=== PATIENT | male | born 1995 | race Caucasian/White ===

== ENCOUNTER 2022-06-14 21:00 | Emergency (ER) | payer MEDICAID, SELFPAY ==
[2022-06-14 21:02] VITALS: BP 132/84; PULSE 80; RESP 20; TEMP 37; O2SAT 99; BMI 26.6
--- NOTE | 2022-06-14 21:07 | ECG_ITS ---
Test Reason : chest pain Blood Pressure : / mmHG Vent. Rate : 072 BPM Atrial Rate : 072 BPM P-R Int : 142 ms QRS Dur : 102 ms QT Int : 374 ms P-R-T Axes : 056 061 043 degrees QTc Int : 409 ms Normal sinus rhythm Normal ECG No previous ECGs available Referred By: Generic ED Physician Electronically Signed By:LAURY BUENO
[2022-06-14 21:32] VITALS: BP 128/86; PULSE 79; RESP 16; TEMP 36.4; O2SAT 100
[2022-06-14 21:36] LABS: MANUAL DIFF FLAG NO
[2022-06-14 21:37] LABS: Basophils Absolute Auto 0.1 X10*3/uL (0.0-0.2); Basophils Percent Auto 0.9 % (0-2); Eosinophils Absolute Auto 0.2 X10*3/uL (0.0-0.4); Eosinophils Percent Auto 3.1 % (0-4); Hematocrit 42.9 % (42.0-52.0); Imm Gran Abs Auto 0.01 X10*3/uL (0.00-0.03); Imm Gran Pct Auto 0.1 % (0.0-0.4); Lymphocytes Absolute Auto 2.4 X10*3/uL (1.2-4.9); Lymphocytes Percent Auto 34.8 % (20-40); Mean Corpuscular Hemoglobin 30.6 pg (27.0-33.0); Mean Corpuscular Volume 87.6 fL (80.0-98.0); Monocytes Absolute Auto 0.5 X10*3/uL (0.1-1.2); Monocytes Percent Auto 7.3 % (2-11); Neutrophils Absolute Auto 3.8 x10*3/uL (2.0-8.3); Neutrophils Percent Auto 53.8 % (45-73); Platelet Count 258 X10*3/uL (160-400); Red Cell Distribution Width 11.6 % (11.0-16.0)
--- NOTE | 2022-06-14 21:46 | PC.NURSE ---
Nursing Assessment: Pt's V/S are stable, Pt 's spouse is at bedside. Pt is connected to the radiographer cardiac catheterization and it shows NSR. Pt labs has drawn. Pt reports, he started experiencing chest and tingiling pain shooting to the left arm x 3 days ago. Pt lungs sounds are clear throughout bilaterally. Pt has no edema, +skin turgor, <2 capillary refill.
[2022-06-14 21:49] VITALS: BP 128/86; PULSE 72; RESP 16; TEMP 37.1; O2SAT 98
--- NOTE | 2022-06-14 21:51 | ED.CHESTPAIN ---
HPI - Chest Pain General Chief Complaint: Chest Pain Stated Complaint: chest pain/ left arm numb Time Seen by Provider: 06/14/22 21:50 Source: patient Mode of arrival: ambulatory Limitations: no limitations History of Present Illness HPI narrative: Patient is 27 years old with nonsmoker no risk factors for coronary disease comes here for 3 days of midsternal burning sensation and left hand tingling and pain sometimes patient does have a stress full job which he been doing at age of 17. No stomach pain no nausea no vomiting no diaphoresis no relation of pain with food or breathing or movement Related Data Previous Rx's Medication Instructions Recorded pantoprazole 40 mg tablet,delayed 40 mg PO DAILY #20 tabs 06/14/22 release (Protonix) sucralfate 1 gram tablet 1 g PO BID #60 tabs 06/14/22 Allergies Allergy/AdvReac Type Severity Reaction Status Date / Time No Known Allergies Allergy Verified 06/14/22 21:05 [No Known Allergies*] Review of Systems Review of Systems: Yes all other systems are reviewed and are negative [facility] Social History Social History Smoked in Last 30 Days: No Use of substances other than those prescribed or required for medical reasons: No Advance Directives: No Advance Directives Information Provided: No Physical Exam Vital Signs: Vital Signs: Last Vital Signs Temp 98.7 F 06/14/22 21:49 Pulse 72 06/14/22 21:49 Resp 16 06/14/22 21:49 BP 128/86 06/14/22 21:49 Pulse Ox 98 06/14/22 21:49 O2 Del Method 06/14/22 21:49 BMI result Body Mass Index 26.6 Appearance: Alert. Oriented X3. No acute distress. Eyes: PERRLA, No Nystagmus ENT: Pharynx normal. Oral Mucosa moist Neck: Normal inspection. Neck supple. CVS: Normal heart rate and rhythm. Pulses normal. Respiratory: No respiratory distress. Equal air entry bilateral, no wheezing/rales/rhonchi Abdomen: Soft and nontender. Bowel sounds are present, no mass palpable, no CVA tenderness Skin: Skin warm and dry. Normal skin color. Normal skin turgor. Extremities: No lower extremity edema. No calf tenderness Neuro: Oriented X 3. No motor deficit. No sensory deficit.No cerebellar signs , cranial nerves II-XII intact Medical Decision Making Medical Decision Making MDM Narrative: Patient with atypical chest pain for last 3 days no risk factors heart score 0 likely is esophageal spasm advised to take PPI and follow with PCP Lab Data MDM Lab Attestation statement: I reviewed the patient's lab results. 06/14/22 21:30 06/14/22 21:30 Labs: Lab Results 06/14/22 06/14/22 06/14/22 Range/Units 21:30 21:30 21:30 WBC 7.0 (4.8-10.8) X10*3/uL RBC 4.90 (4.60-5.80) X10*6/uL Hgb 15.0 (14.0-18.0) g/dl Hct 42.9 (42.0-52.0) % MCV 87.6 (80.0-98.0) fL MCH 30.6 (27.0-33.0) pg MCHC 35.0 (31.0-36.0) g/dl RDW 11.6 (11.0-16.0) % Plt Count 258 (160-400) X10*3/uL MPV 9.0 L (9.4-12.4) fL Immature Gran % (Auto) 0.1 (0.0-0.4) % Neut % (Auto) 53.8 (45-73) % Lymph % (Auto) 34.8 (20-40) % Parke % (Auto) 7.3 (2-11) % Eos % (Auto) 3.1 (0-4) % Baso % (Auto) 0.9 (0-2) % Lymph # (Auto) 2.4 (1.2-4.9) X10*3/uL Parke # (Auto) 0.5 (0.1-1.2) X10*3/uL Eos # (Auto) 0.2 (0.0-0.4) X10*3/uL Baso # (Auto) 0.1 (0.0-0.2) X10*3/uL Abs Immat Gran (auto) 0.01 (0.00-0.03) X10*3/uL Absolute Neuts (auto) 3.8 (2.0-8.3) x10*3/uL Absolute Nucleated RBC 0.000 (0.0-0.012) X10*3/uL Nucleated RBC % (auto) 0.0 (0.0-0.2) /100WBC Sodium 143 (135-145) mmol/L Potassium 4.1 (3.3-5.1) mmol/L Chloride 104 (96-108) mmol/L Carbon Dioxide 28 (22-29) mmol/L Anion Gap 15 (12-20) BUN 15 (9-16) mg/dL Creatinine 1.00 (0.5-1.4) mg/dL Estim Creat Clear Calc 130.1 Estimated GFR > 60 Random Glucose 100 (60-115) mg/dL Calcium 9.6 (8.4-10.2) mg/dL Troponin I High Sens 8.1 (<3.5-35.0) ng/L Independent Interpretation I performed an independent interpretation of an: EKG Interpretation: Normal sinus rhythm heart rate 72 beats per minute normal interval normal axis no acute ST T wave changes no acute ischemia Scores Heart Score History: -0- slightly suspicious ECG: -0- normal Age: -0- < or = 45 Risk factory: -0- no risk factors known Troponin: -0- < or = normal limit Score: 0 Risk: 1.7% Discharge Plan Discharge Clinical Impression: Atypical chest pain Patient Disposition: Home, Self-Care Instructions: Noncardiac Chest Pain (ED) Additional Instructions: Your chest pain is not likely from the heart Avoid stress, ibuprofen Take Prilosec and sucralfate daily and follow with PCP for further evaluation Prescriptions: New pantoprazole [Protonix] 40 mg tablet,delayed release (DR/EC) 40 mg PO DAILY Qty: 20 0RF sucralfate 1 gram tablet 1 g PO BID Qty: 60 0RF
[2022-06-14 21:53] LABS: Anion Gap 15 (12-20); Blood Urea Nitrogen 15 mg/dL (9-16); Calcium 9.6 mg/dL (8.4-10.2); Carbon Dioxide 28 mmol/L (22-29); Chloride 104 mmol/L (96-108); Creatinine Clr Calc Pharmacy 130.1; Estimated Glomerular Filt Rate > 60; Glucose Random 100 mg/dL (60-115); Potassium 4.1 mmol/L (3.3-5.1); Sodium 143 mmol/L (135-145)
[2022-06-14 22:02] LABS: Troponin-I High Sensitivity 8.1 ng/L (<3.5-35.0)
[2022-06-14] MEDS: Omeprazole 40 MG CAPSULE.DR PO (22:29)
[2022-06-14] MEDS: Magnesium Hydrox/Alum Hydrox 30 ML ORAL.SUSP PO (22:29)
== END 2022-06-14 22:49 | disposition home or self-care (01) ==
PROVIDERS: Emergency Provider Internal Medicine
DX: R07.89 Other chest pain (principal)
CPT/HCPCS: 36415; 80048; 84484; 85025; 93005; 99284; 99285